=== PATIENT | female | born 1980 | race Two or more races ===

== ENCOUNTER 2018-02-26 13:13 | Inpatient (IN) | payer OTHER ==
[~2018-02-26] VITALS: Ht 160 cm; Wt 53.0 kg
[2018-02-26 14:12] LABS: APPEARANCE CLOUDY ((CLEAR)); BILIRUBIN NEGATIVE; BLOOD NEGATIVE; COLOR AMBER ((YELLOW)); GLUCOSE (STRIP) NEGATIVE; KETONES 20; LEUKOCYTES NEGATIVE; NITRITE NEGATIVE; PROTEIN (STRIP) 30; UROBILINOGEN 0.2 MG/DL (0.2-1.0)
[2018-02-26 14:27] LABS: BASOPHIL (%) 1.4 % (0-1); BASOPHIL COUNT 0.1 K/uL (0-0.1); EOSINOPHIL (%) 0.8 % (0-5); HEMATOCRIT 41.6 % (36.0-46.0); IMMATURE GRANULOCYTE (%) 0.2 % (0.0-0.7); LYMPHOCYTE (%) 39.2 % (15-42); LYMPHOCYTE COUNT 1.9 K/uL (1.0-2.8); MCH 29.5 PG (29.0-34.0); MCHC 33.7 G/DL (30.0-36.0); MCV 87.6 FL (83-99); MONOCYTE (%) 10.2 % (3-12); MONOCYTE COUNT 0.5 K/uL (0-0.8); NEUTROPHIL (%) 48.2 % (45-76); NEUTROPHIL COUNT 2.4 K/uL (1.8-6.4); PLATELET COUNT 353 K/uL (156-360); RBC DIS.WIDTH-CV 14.3 % (11.8-14.6); RBC DIS.WIDTH-SD 45.6 % (39-53); RED BLOOD COUNT 4.75 M/uL (3.80-5.20); WHITE BLOOD COUNT 4.9 K/uL (4.1-10.2)
[2018-02-26 14:37] LABS: ALBUMIN 4.6 g/dL (3.2-4.8); CHLORIDE 105 mEq/L (99-109); POTASSIUM 4.3 mEq/L (3.7-5.4); SODIUM 139 mEq/L (136-147)
[2018-02-26 14:40] LABS: GLUCOSE 99 mg/dL (70-99); TOTAL PROTEIN 7.7 g/dL (6.4-8.3)
[2018-02-26 14:41] LABS: TOTAL BILIRUBIN 0.6 mg/dL (0.0-1.0)
[2018-02-26 14:41] LABS: AMPHETAMINE PRESUMPTIVE POSITIVE (500 ng/mL); BARBITURATES NEGATIVE (200 ng/mL); BENZODIAZEPINES NEGATIVE (150 ng/mL); BUPRENORPHINE NEGATIVE (10 ng/mL); COCAINE NEGATIVE (150 ng/mL); METHADONE NEGATIVE (200 ng/mL); METHAMPHETAMINE NEGATIVE (500 ng/mL); OPIATES (MORPHINE) NEGATIVE (100 ng/mL); OXYCODONE NEGATIVE (100 ng/mL); PHENCYCLIDINE NEGATIVE (25 ng/mL); PROPOXYPHENE NEGATIVE (300 ng/mL); THC CANNABINOIDS PRESUMPTIVE POSITIVE (50 ng/mL); TRICYCLIC ANTIDEPRESSANTS NEGATIVE (300 ng/mL)
[2018-02-26 14:43] LABS: CREATININE 0.8 mg/dL (0.6-1.3); GFR ESTIMATE (CALCULATED) > 59 mL/min/; SERUM ETHYL ALCOHOL < 10 mg/dL
[2018-02-26 14:44] LABS: ALKALINE PHOSPHATASE 91 IU/L (3-129)
[2018-02-26 14:45] LABS: EPITHELIAL CELLS 1+ /HPF; RED BLOOD CELLS 0-5 /HPF (0-5); WHITE BLOOD CELLS 0-5 /HPF (0-5)
[2018-02-26 14:45] LABS: AST (GOT) 14 IU/L (2-34); UREA NITROGEN (BUN) 10 mg/dL (9-23)
[2018-02-26 14:46] LABS: BACTERIA NONE SEEN /HPF; MUCUS RARE /LPF; UCUL ADDED? NO
[2018-02-26 14:47] LABS: ACETAMINOPHEN (TYLENOL) < 10 mcg/mL (10-30); ALT (GPT) 11 IU/L (3-49); SALICYLATE < 5.0 MG/DL (15-30)
[2018-02-26 14:47] LABS: AMORPHOUS PHOSPHATE CRYSTALS 3+
[2018-02-26 14:55] LABS: QUANTITATIVE HCG < 4.0 MIU/ML
[2018-02-26 17:36] VITALS: BP 126/83
[2018-02-26] MEDS ORDERED: ADDERALL30 MG PO (17:58)
[2018-02-26] MEDS ORDERED: NEURONTIN100 MG PO (18:19)
[2018-02-27 07:50] VITALS: BP 106/71
[2018-02-27 16:00] VITALS: BP 120/73
[2018-02-28 07:54] VITALS: BP 109/58
[2018-02-28 16:24] VITALS: BP 112/61
[2018-03-01 07:59] VITALS: BP 113/55
[2018-03-01 14:37] VITALS: BP 114/58
[2018-03-02 07:29] VITALS: BP 106/57
[2018-03-02 15:11] VITALS: BP 120/60
[2018-03-03 07:36] VITALS: BP 123/60
[2018-03-03 15:10] VITALS: BP 134/64
[2018-03-04 08:02] VITALS: BP 133/72
[2018-03-04] MEDS ORDERED: RISPERDAL2 MG PO (10:10)
== END 2018-03-04 11:09 | disposition home or self-care (01) | DRG 885 ==
LOC: EME 13:13 → 1WEST 14:03 → EDOF 14:03 → 1WEST 14:03 → ENRESERV 17:26 → 1WEST 03-04 11:09
PROVIDERS: Emergency Medicine
DX: F20.0 Paranoid schizophrenia (principal); F17.200 Nicotine dependence, unspecified, uncomplicated
CPT/HCPCS: 80053; 81003; 84702; 84999; 85025; 90837; 97150 GO; 97166 GO; 99281; 99285; G0480